=== PATIENT | female | born 1955 | race Caucasian/White ===

== ENCOUNTER 2022-02-02 10:00 | Day surgery (SDC) | payer BC ==
[~2022-02-02 10:00] MED LIST: Lactated Ringers 1,000 ML IV SCH; Sodium Chloride 0.9% 10 ML Syringe FLUSH PRN
[2022-02-02] MEDS ORDERED: Midazolam 1 MG/ML 2 ML SDV ONE (10:55)
[2022-02-02] MEDS ORDERED: Propofol 200 MG/20 ML SDV ONE (10:55)
[2022-02-02 13:52] VITALS: BP 108/64; PULSE 60
== END 2022-02-02 13:15 | disposition home or self-care (01) ==
LOC: KA.SDS 10:00
PROVIDERS: ATTEND Family Medicine
DX: D12.6 Benign neoplasm of colon, unspecified (principal); F32.A Depression, unspecified; N28.9 Disorder of kidney and ureter, unspecified; Z79.899 Other long term (current) drug therapy; Z98.890 Other specified postprocedural states; Z90.710 Acquired absence of both cervix and uterus
CPT/HCPCS: 00812; J2250; J2704; J7120